=== PATIENT | female | born 1965 | race Caucasian/White ===

== ENCOUNTER 2020-09-19 09:27 | Emergency (ER) | payer BC, SELFPAY ==
--- NOTE | ~2020-09-19 | XR_ITS ---
EXAMINATION: XR hand LT min 3V EXAM DATE: 09/19/2020 10:12 INDICATION: Laceration b/n 4th and 5th. TECHNIQUE: Left hand frontal, lateral and oblique projections obtained and reviewed. There is no evans or study for comparison. FINDINGS: Left metacarpal bones are unremarkable. There are no acute fractures or dislocations ident ified. There is no subcutaneous gas. The soft tissue is unremarkable. IMPRESSION: 1. XR hand LT min 3V exam without acute osseous findings. Reviewed, dictated and finalized at location B. UCTOR YARD
[2020-09-19 09:35] VITALS: BP 173/82; PULSE 104; RESP 18; TEMP 36.4; O2SAT 99
[2020-09-19] MEDS: TETANUS,DIPHTHERIA,AC PERTUSSIS ADULT (0.5 ML) BOOSTRIX IM (10:24)
--- NOTE | 2020-09-19 10:47 | PC.NURSE ---
ALEAH Gagnon, at bedside to remove pt's ring with ring cutter.
--- NOTE | 2020-09-19 11:18 | ED.GENADULT ---
HPI - General Adult General Chief complaint: Wound/Laceration Stated complaint: laceration left hand Time Seen by Provider: 09/19/20 09:40 Source: patient Mode of arrival: ambulatory Limitations: no limitations History of Present Illness HPI narrative: Patient is a 55-year-old female who presents with a laceration between the left fourth and fifth digits that occurred while cleaning glass in the sink that broke patient also notes she has 2 rings one on each ring finger that have been stuck on the fingers and would like them to be removed if possible patient notes her tetanus is not up-to-date. Patient denies any other complaints presents in no distress Related Data Home Medications Medication Instructions Recorded Confirmed conjugated estrogens 0.3 mg tablet 0.3 mg PO DAILY 08/11/19 progesterone micronized 200 mg 200 mg PO ONCE 08/11/19 capsule Allergies Allergy/AdvReac Type Severity Reaction Status Date / Time adhesive tape Allergy Severe blisters Verified 09/19/20 09:41 and skin pulled off Review of Systems Review of Systems: All systems reviewed & are unremarkable except as noted in HPI and below PMFSH Surgical History Surgical History H/O breast augmentation H/O colposcopy with cervical biopsy H/O dilation and curettage H/O LEEP H/O vaginal hysterectomy [place] teeth removed Social History Social History Smoking status: Never smoker Smoking end date: 09/28/02 Alcohol intake: current Gender identity (if verbalized by the patient): Female Sexual Orientation (if Verbalized by the Patient): Straight or Heterosexual Exam Narrative: Exam Narrative: GENERAL: Well-appearing, well-nourished, and in no acute distress. HEAD: Normocephalic, atraumatic. EYES: PERRLA and EOMI. ENT: Nares clear, no rhinorrhea or epistaxis. Mucous membranes moist. EXTREMITIES: Normal range of motion. No edema. SKIN: Warm, dry, no rash. Patient with half centimeter superficial linear laceration in the webspace between the fourth and fifth digits NEURO: No focal deficits. Alert and oriented x3. Cranial nerves II through XII grossly intact PSYCH: Normal mood and affect. Course Course Emergency Course: Patient in the room at this time no distress aware of case findings treatment plan diagnosis. Patient's rings were removed using a ring cutter wound was closed Vital Signs Vital signs: Vital Signs Temperature 97.5 F L 09/19/20 09:35 Pulse Rate 104 H 09/19/20 09:35 Respiratory Rate 18 09/19/20 09:35 Blood Pressure 173/82 H 09/19/20 09:35 Pulse Oximetry 99 09/19/20 09:35 Temperature 97.5 F L 09/19/20 09:35 Pulse Rate 104 H 09/19/20 09:35 Respiratory Rate 18 09/19/20 09:35 Blood Pressure 173/82 H 09/19/20 09:35 Pulse Oximetry 99 09/19/20 09:35 Procedures Laceration Laceration 1: Date: 09/19/20 Time: 11:33 Site: upper extremity Side (If applicable): left Size (cm): 0.5 Description: linear Depth: simple, single layer Local Anesthetic: lidocaine 1% and other anesthetic Pre-repair: wound explored, irrigated and irrigated extensively ====== Skin Level ====== Skin layer closed with: nylon Size (cm): 5-0 Number of sutures: 1 ====== Subcutaneous Layer ====== ====== Muscle Layer ====== ====== Tendon Layer ====== Other Procedure Procedure 1: Other Procedure: 2 rings were removed one from each ring finger without complication neurovascularly intact pre and post procedure Medical Decision Making MDM Narrative Medical decision making narrative: Patients injury or pain is consistent with musculoskeletal etiology. No signs of neurological or vascular compromise on exam. Compartments and tisues are soft without signs of compartment syndrome. Pain is felt appropriate fo
== END 2020-09-19 11:45 | disposition home or self-care (01) ==
PROVIDERS: Emergency Provider Emergency Medicine; PCP Family Medicine
DX: S61.412A Laceration without foreign body of left hand, initial encounter (principal); Z23 Encounter for immunization; M65.342 Trigger finger, left ring finger; M65.341 Trigger finger, right ring finger; W25.XXXA Contact with sharp glass, initial encounter
CPT/HCPCS: 12001; 73130; 90471; 90715; 99283

== ENCOUNTER 2024-08-23 15:13 | Outpatient (CLI) | payer BC, SELFPAY ==
--- NOTE | ~2024-08-23 | MM_ITS ---
EXAMINATION: MM scrn gaye implant BI w carmen HISTORY: Screening mammogram TECHNIQUE: Craniocaudal and mediolateral oblique 3-D tomosynthesis images with implant displacement a nd synthetic 2-D images were generated. Craniocaudal and mediolateral oblique views of the breasts wi thout implant displacement were obtained using full field digital mammography. CAD analysis was submi tted and interpreted. COMPARISON: Comparison to multiple prior studies sequentially, with oldest reviewed study dated 04/16. BREAST PARENCHYMAL COMPOSITION: Not dense: There are scattered areas of fibroglandular density. FINDINGS: There is no evidence of suspicious mass, calcification, or architectural distortion to sugg est malignancy in either breast. There has been no suspicious interval change. IMPRESSION: 1. No mammographic evidence of malignancy. 2. Recommend routine screening mammography in one year. BI-RADS Category 1: Negative Reviewed, dictated and finalized at location B. T DRIVER
== END 2024-08-23 15:14 | disposition home or self-care (01) ==
LOC: MICIMG 15:14
PROVIDERS: PCP Family Medicine; Visit Provider Family Medicine
DX: Z12.31 Encounter for screening mammogram for malignant neoplasm of breast (principal)
CPT/HCPCS: 77063; 77067